=== PATIENT | male | born 1990 | race Hispanic/Latino ===

== ENCOUNTER 2021-03-03 00:21 | Emergency (ER) | payer OTHER ==
[2021-03-03] MEDS ORDERED: Lidocaine 1% w/Epinephrine 1:100K 20 ML VIAL ONE (00:47)
[2021-03-03] MEDS ORDERED: Boostrix 0.5 ML (Tdap) VIAL ONE (01:18)
[2021-03-03] MEDS ORDERED: Bacitracin 1 PK ONE (01:18)
== END 2021-03-03 02:55 ==
LOC: NAV ERS 00:21
DX: S01.511A Laceration without foreign body of lip, initial encounter (principal); S80.212A Abrasion, left knee, initial encounter; S80.811A Abrasion, right lower leg, initial encounter; Y04.8XXA Assault by other bodily force, initial encounter
CPT/HCPCS: 40652; 90471; 90715